=== PATIENT | female | born 1965 | race Caucasian/White ===

== ENCOUNTER → 2021-02-24 | Outpatient (CLI) | payer OTHER ==
[~2021-02-24] MED LIST: ATOR1TAB21; D31000TA2 PO; ESTR0.1C5; FLON1SPR; LISI20TA33; MONT10TA10; SYMB16INH INH; VENTAER INH
== END ==
LOC: M LABSMTC 08:05
PROVIDERS: ATTEND Anesthesiology
DX: Z01.812 Encounter for preprocedural laboratory examination (principal); Z11.52 Encounter for screening for COVID-19

== ENCOUNTER 2021-03-01 07:39 | Day surgery (SDC) | payer OTHER ==
[~2021-03-01] VITALS: Ht 162.6 cm; Wt 94.5 kg
[~2021-03-01 07:39] MED LIST changes: +NS 1,000 ML IV ONE
[2021-03-01] MEDS ORDERED: propofoL 200 MG/20 ML VIAL As Ordered ONE ×2 (08:35→08:56)
[2021-03-01] MEDS ORDERED: LIDOCAINE 2% MDV 20ML VIAL As Ordered ONE (08:35)
--- NOTE | 2021-03-01 09:07 | ROOR ---
Patient Name: Halima Hough Procedure Date: 03/01/2021 8:44 AM Date of : 1965 Age: 56 Room: [facility] Gender: Female Note Status: Finalized Procedure: Colonoscopy Indications: High risk colon cancer surveillance: Personal history of colonic polyps Providers: Sean Biswas Jr, MD Referring MD: Makenna Abel DO Requesting Provider: Medicines: Propofol per Anesthesia Complications: No immediate complications. Procedure: Pre-Anesthesia Assessment: - Prior to the procedure, a History and Physical was performed, and patient medications and allergies were reviewed. The patient is competent. The risks and benefits of the procedure and the sedation options and risks were discussed with the patient. All questions were answered and informed consent was obtained. Patient identification and proposed procedure were verified by the physician and the nurse in the pre-procedure area and in the procedure room. Mental Status Examination: alert and oriented. Airway Examination: normal oropharyngeal airway and neck mobility. Respiratory Examination: clear to auscultation. CV Examination: normal. ASA Grade Assessment: II - A patient with mild systemic disease. After reviewing the risks and benefits, the patient was deemed in satisfactory condition to undergo the procedure. The anesthesia plan was to use moderate sedation / analgesia (conscious sedation). Immediately prior to administration of medications, the patient was re-assessed for adequacy to receive sedatives. The heart rate, respiratory rate, oxygen saturations, blood pressure, adequacy of pulmonary ventilation, and response to care were monitored throughout the procedure. The physical status of the patient was re-assessed after the procedure. The Colonoscope was introduced through the anus and advanced to the cecum, identified by appendiceal orifice and ileocecal valve. The colonoscopy was performed without difficulty. The patient tolerated the procedure well. The quality of the bowel preparation was adequate. Findings: The rectum, recto-sigmoid colon, sigmoid colon, descending colon, transverse colon, appendiceal orifice and ileocecal valve appeared normal. Three sessile polyps were found in the descending colon, transverse colon and cecum. The polyps were diminutive in size. These polyps were removed with a cold snare. Resection was complete, but the polyp tissue was only partially retrieved. Impression: - The rectum, recto-sigmoid colon, sigmoid colon, descending colon, transverse colon, appendiceal orifice and ileocecal valve are normal. - Three diminutive polyps in the descending colon, in the transverse colon and in the cecum, removed with a cold snare. Complete resection. Partial retrieval. Recommendation: - Discharge patient to home (ambulatory). - Repeat colonoscopy in 5 years for surveillance. - Telephone my office for pathology results in 1 week. Procedure Code(s): --- Professional --- 01488, Colonoscopy, flexible; with removal of tumor(s), polyp(s), or other lesion(s) by snare technique Diagnosis Code(s): --- Professional --- Z86.010, Personal history of colonic polyps K63.5, Polyp of colon CPT copyright 2019 [employer]. All rights reserved. The codes documented in this report are preliminary and upon biology professor review may be revised to meet current compliance requirements. Sean Biswas MD Sean Biswas Jr, MD 03/01/2021 9:06:53 AM Electronically signed by Sean Biswas Jr, MD Number of Addenda: 0 Note Initiated On: 03/01/2021 8:44 AM Estimated Blood Loss: Estimated blood loss: none.
[2021-03-01 09:20] VITALS: BP 125/78
== END 2021-03-01 09:30 | disposition home or self-care (01) ==
LOC: M OPP 07:39
PROVIDERS: ATTEND Surgery
DX: Z12.11 Encounter for screening for malignant neoplasm of colon (principal); Z86.010 Personal history of colon polyps; D12.6 Benign neoplasm of colon, unspecified; Z79.899 Other long term (current) drug therapy; Z80.0 Family history of malignant neoplasm of digestive organs